=== PATIENT | male | born 1955 | race Caucasian/White ===

== ENCOUNTER 2016-12-24 11:47 | Inpatient (IN) | payer SELFPAY ==
[~2016-12-24] VITALS: Ht 177.8 cm; Wt 82.3 kg
--- NOTE | ~2016-12-24 | ER ---
PATIENT'S NAME: THERESE CÁRDENAS [facility] AGE: 61 Y [address] ROOM: [place] [address] LOCATION: [facility] ADMIT DATE: 12/24/2016 ER/Outpatient Report DISCHARGE DATE: FAMILY PHYSICIAN: PHYSICIAN, NO ATTENDING PHYSICIAN: Christen GRAVES CHIEF COMPLAINT: Heat exhaustion. HISTORY OF PRESENT ILLNESS: The patient arrives by ambulance via EMS after EMS was called to the interstate rest stop for evaluation of this individual. By report, he had been working on his vehicle significantly today and had passed out or at least was acting strangely. The patient was found to be with elevated core temperature. Fluids were started and he was brought in for evaluation. He is originally for [place]. He is a . He states all his medical records are at the [facility] in [place], [place]. Attempts to reach out to them have been futile at this time. The patient denies any alcohol, tobacco, or illicit drug use. He was tachycardic per EMS. They noted that he had in fact stopped sweating. No loss of consciousness before or during EMS. PAST MEDICAL HISTORY: Documented on the record and reviewed by me. SOCIAL HISTORY: Documented on the record and reviewed by me. MEDICATIONS: Documented on the record and reviewed by me. ALLERGIES: DOCUMENTED ON THE RECORD AND REVIEWED BY ME. REVIEW OF SYSTEMS: All systems were reviewed and negative except as noted in the HPI. PHYSICAL EXAMINATION: VITAL SIGNS: On arrival; blood pressure 129/84, pulse 127, respiratory rate 28, temperature 100.8 rectal; and SpO2 is 97% on room air. Pain is 0/10. GENERAL: An age-appropriate, dirty, disheveled male, in no obvious pain or distress, listless. NEURO: The patient is awake. He has decreased alertness. The patient was able to follow commands in all extremities, but his mental acuity is PATIENT'S NAME: THERESE CÁRDENAS [facility] AGE: 61 Y [address] ROOM: [place] [address] LOCATION: [facility] ADMIT DATE: 12/24/2016 ER/Outpatient Report DISCHARGE DATE: FAMILY PHYSICIAN: PHYSICIAN, NO ATTENDING PHYSICIAN: Christen GRAVES depressed. He is slow to answer questions and speaks hesitantly, but does answer appropriately. He knows that he is in [facility], that it is early afternoon, and that he has been out in the heat today. No focal deficits. On reevaluation sometime later, the patient was found to be hallucinating and identifying individuals who are not actually visible. He remained otherwise unremarkable, but he was just an unusual individual otherwise. HEENT: Normocephalic and atraumatic, very dirty, but otherwise unremarkable. Eyes are PERRL, dilated. The oropharynx is clear. NECK: Supple. Trachea is midline. CHEST: Heart is tachycardic. No obvious murmurs. Lungs are clear to auscultation bilaterally with no rhonchi, wheezes, or rales. ABDOMEN: Soft, nontender, and nondistended. No rebound or guarding. BACK: Back is normal to inspection and palpation. No CVA tenderness. RECTAL: Normal. External hemorrhoids noted otherwise. PROSTATE: Not examined. EXTREMITIES: Warm and well perfused. SKIN: Cool and clammy and the extremities warm and dry centrally. His back and hairline are wet presumably with sweat. LABORATORY DATA AND X-RAYS: Head CT reveals no obvious traumatic abnormalities, but there are 2 areas of punctate air visible on the right side of the sella of undetermined etiology. EKG reveals sinus tachycardia, rate of 105, with normal intervals and axis, no comparison available. Urine drug screen is positive for amphetamines. CPK is 672. CMS: Sodium 144, potassium 3.8, chloride is 112, glucose is 105, BUN is 39, creatinine 2.2, GFR is 31. LFTs are notable for bilirubin of 2.0. No elevation of the ALT or AST. CBC: White count 11.9, hemoglobin 17.5, and platelets of 242. Lactate is 1.6. CT stone protocol with no acute renal abnormalities, punctate renal stone without obstruction. Urinalysis showed 25 leukocytes, 30 protein, 50 ketones, 1 urobilinogen, and blood of 10. Micro: 10 to 20 white count, no red blood cells, no epithelials, some mucus, and hyaline casts of 10 to 20. IMPRESSION: 1. Encephalopathy secondary to amphetamine use as well as exertional heat illness. 2. Likely exertional heat exhaustion without heat stroke. 3. Hallucinations secondary to amphetamines versus possible heat stroke, time does not support heat stroke. 4. Presumed acute kidney injury with possible rhabdomyolysis, creatinine 2.2. 5. Azotemia. 6. Hallucinations. 7. Amphetamine use. PATIENT'S NAME: THERESE CÁRDENAS [facility] AGE: 61 Y [address] ROOM: [address] [address] LOCATION: [facility] ADMIT DATE: 12/24/2016 ER/Outpatient Report DISCHARGE DATE: FAMILY PHYSICIAN: PHYSICIAN, KONG ATTENDING PHYSICIAN: Christen GRAVES EMERGENCY DEPARTMENT COURSE: The patient was seen and evaluated. Initially, his presentation was most consistent with exertional heat illness. Rectal temperature was elevated. The patient was tachycardic and appeared hypovolemic. He is volume resuscitated with 3 L of normal saline with improvement in his heart rates to 95 to 105. He appeared to be relatively normal, however, we are trying to assess records from the [facility] in [place], [place], the patient's claimed home hospital. We were unable to secure those records. However, during that time we are trying to do so, the patient began to hallucinate. This prompted further evaluation including head CT and urine drug screen, which gave the above findings. In any case, he will need to be admitted for observation in the setting of acute kidney injury and encephalopathy for further evaluation and treatment. Repeat rectal core temperature was down to 97.5 degrees. The patient's tachycardia had improved markedly. He will need to be admitted for further evaluation and treatment. MD SHAR LOFTON/narayan /[id number] d: 12/25/16 0007 t: 01/03/17708, OUTPATIENT REPORT
--- NOTE | ~2016-12-24 | DS ---
PATIENT'S NAME: THERESE CÁRDENAS [facility] AGE: 61 Y [address] ROOM: [address] [address] LOCATION: [facility] ADMIT DATE: 12/24/2016 Discharge Summary DISCHARGE DATE: 12/27/2016 FAMILY PHYSICIAN: PHYSICIAN, NO ATTENDING PHYSICIAN: Christen Sullivan FINAL DIAGNOSES: 1. Acute encephalopathy, secondary to drug use. 2. Substance-induced psychosis. 3. Acute kidney injury. 4. Hyperbilirubinemia. 5. Pneumocephalus. CONSULTANTS ON THE CASE: None. PROCEDURES: None. HOSPITAL COURSE: Please see details of admission and H and P by Dr. Sullivan. Briefly, the patient was admitted with confusion and heat exhaustion. The patient was given Ativan for coverage of agitation. We did get a CT scan of maxillary sinuses without contrast due to some abnormal findings on the CT of the head. Alcohol, acetaminophen, and salicylate levels were all ordered. The patient was covered for DVT prophylaxis with Lovenox and GI prophylaxis with Protonix throughout his stay. The patient was monitored on the [facility] pathway for detox. We did get Psych consult, and they recommended allowing the patient to withdrawal, washout from his methamphetamine use. Telemetry monitoring was recommended as well as seizure precautions throughout his stay. The patient was noted to have elevated bilirubin level, and we did follow up with labs which showed resolution. Psych saw the patient on the and recommended Ativan and Haldol for psychoses. The patient continued to show clearing throughout his stay. On the , it was felt that the patient could be discharged with outpatient plans for followup in a [facility] through the [facility] in [place]. DIAGNOSTICS: Chest x-ray was normal. CT of the abdomen and pelvis showed punctate nonobstructing left renal stone. No evidence of ureteral stones or hydronephrosis. CT of the brain without contrast showed several punctate gas collections along the right side of the cavernous sinus. No fractures, acute ischemia, or hemorrhage. CT of the maxillary shows no evidence of fracture or dislocation, interval resolution of the punctate air collections noted. LABORATORY DATA: On admission, lactate was 1.6, sodium 141, potassium 3.8, chloride 112, CO2 of 20, anion gap was 15.8, glucose 150, BUN was 39, creatinine was 2.2, total bilirubin was 2.0, CPK was 672. Acetaminophen and salicylate levels were negative. Alcohol was negative. White blood cell PATIENT'S NAME: THERESE CÁRDENAS [facility] AGE: 61 Y [address] ROOM: [id number] [place], [place] [address] LOCATION: [facility] ADMIT DATE: 12/24/2016 Discharge Summary DISCHARGE DATE: 12/27/2016 FAMILY PHYSICIAN: PHYSICIAN, NO ATTENDING PHYSICIAN: Christen Sullivan count was 11.9, hemoglobin 15.7, hematocrit 46.3, platelets 242. Urinalysis had rare bacteria. Urine drug screen was positive for amphetamines. Prior to discharge, anion gap had dropped to 9.9, CO2 niall to 26, BUN was 13, creatinine was 1.0. Direct bilirubin on 12/25 was 0.3. Hemogram remained stable throughout his stay. DISCHARGE INSTRUCTIONS: The patient is discharged home. He is to follow up with his local provider in [place] in 1 week and also seek Drug and Alcohol Rehab in [place] through the [facility] system. 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 His diet is as tolerated. Activity is as tolerated. Follow up in [place] as mentioned above. DISCHARGE MEDICATIONS: 1. Pepcid 20 mg twice daily. 2. Folic acid 1 mg daily. 3. Multivitamin one tablet daily. 4. Nicotine patch 21 mg transdermally daily. 5. Thiamine 100 mg daily. 6. Claritin 10 mg daily. We do appreciate participating in this patient's care, and thank you very much for the ability to serve him while hospitalized at [facility]. Time spent coordinating details of discharge was greater than 30 minutes of which was spent coordinating with care management and consulting physicians, completion of medication reconciliation, and education of the patient on the above-mentioned diagnoses. [facility]SE [facility]EY MD LINDA/modl /[id number] d: 12/28/16 0309 t: 01/17/17 1559, DISCHARGE SUMMARY
--- NOTE | ~2016-12-24 | HP ---
PATIENT'S NAME: THERESE CÁRDENAS [facility] AGE: 61 Y [address] ROOM: [address] [address] [place] [facility] [place] DATE: 12/24/2016 History & Physical DISCHARGE DATE: FAMILY PHYSICIAN: PHYSICIAN, NO ATTENDING PHYSICIAN: Christen GRAVES DATE OF SERVICE: CHIEF COMPLAINT: Acute encephalopathy. HISTORY OF PRESENT ILLNESS: The patient is a 61-year-old gentleman with no significant past medical history, who presents here with hallucination and fall. 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 The patient was stopped by department of transportation as a routine stop at [place] today and was having physical examination and drug screen. The patient also reports that he was outside in the sun and felt dehydrated and dizzy and had a syncopal event. The patient was brought in by EMS. Upon initial evaluation, the patient was found to have a temperature of 100.8 and was noted to have visual hallucination. On further workup, the patient was noted to have some visual hallucination, and urine drug screen now is positive for amphetamine. 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 He denies self- harming, intentional overdose, chest pain, shortness of breath, fever, chills, abdominal pain, nausea, vomiting, and diarrhea. 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 He reports that he has not slept for 2 days. He reports that he smokes weed and denies any other IV drug use or nasal congestion. The patient reports that he gets most of his treatment at the [facility] in [place]. MEDICAL HISTORY: No significant medical history. SURGICAL HISTORY: The patient reports that he has history of ear surgery. FAMILY HISTORY: He does not know his dad, but reports that his mom of Alzheimer's. SOCIAL HISTORY: The patient reports he currently smokes a pack a day, and he has been smoking ever since he was a kid. 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 PATIENT'S NAME: THERESE CÁRDENAS [facility] AGE: 61 Y [address] ROOM: [address] [address] [place] [facility] [place] DATE: 12/24/2016 History & Physical DISCHARGE DATE: FAMILY PHYSICIAN: PHYSICIAN, NO ATTENDING PHYSICIAN: Christen GRAVES MEDICATIONS: No medications. REVIEW OF SYSTEMS: All systems have been reviewed and are negative except for what I mentioned in the HPI. PHYSICAL EXAMINATION: VITAL SIGNS: Temperature of 100.8, blood pressure of 129/84, heart rate of 127, respiratory rate of 14, saturating 97% on room air. GENERAL APPEARANCE: The patient is awake, noted to have slight flight of ideas and noted to have some visual hallucination as he reports of seeing objects that are not present in the room. NOSE: No nasal discharge. EYES: Sclerae nonicteric. Extraocular muscle intact. EARS: No ear discharge. MOUTH/ORAL CAVITY: Dry oral mucosa. CHEST: Clear to auscultation bilaterally. HEART: Tachycardic. No murmurs, rubs, or gallops heard. ABDOMEN: Soft, nontender, and nondistended. Bowel sounds present. EXTREMITIES: No edema. The patient is noted to have clubbing of fingers. MUSCULOSKELETAL: Range of motion is intact. No obvious joint effusion. EXPORT MANAGER: Alert and oriented x2, not oriented to time. Motor and sensory grossly intact. LABORATORY DATA: EKG, sinus tachycardia. Lab shows CPK of 672. Lactate of 1.6. White blood cell count of 11.9, hemoglobin of 15.7, platelet of 242. Glucose of 150, BUN of 39, creatinine of 2.2, sodium 144, potassium of 3.8, chloride of 112, and CO2 of 20. Urine drug screen is positive for amphetamine, negative for benzo, negative for barbiturates, negative for cocaine, negative for PCP, negative for cannabinoid. IMAGING DATA: CT brain shows no acute ischemic or hemorrhage. Several punctate gas collection along the right side of the cavernous sinus of uncertain significance. Clinical correlation regarding any previous trauma or intervention would be helpful. No discrete fracture site is identified. ASSESSMENT AND PLAN: 1. Acute encephalopathy. Etiology most likely secondary to amphetamine use, lack of sleep, and dehydration. We will admit the patient. We will treat the patient supportively. We will start the patient on IV fluid and have Ativan 2 mg IV as needed for agitation. To continue the patient PATIENT'S NAME: THERESE CÁRDENAS [facility] AGE: 61 Y [address] ROOM: [place] [address] [place] [facility] DATE: 12/24/2016 History & Physical DISCHARGE DATE: FAMILY PHYSICIAN: PHYSICIAN, NO ATTENDING PHYSICIAN: Christen GRAVES on telemonitor. Contacted [place] [employer] for evaluation for EPC. The patient deemed to be not a candidate for EPC. However, if the patient is noted to be harmful to self, personnel to contact police Department for re-evaluation. We will also have put seizure precaution. We will use Tylenol for fever and pain. 2. Acute kidney injury. Etiology most likely secondary to dehydration. We will start the patient on IV fluid. We will acquire renal function panel by tomorrow morning. 3. Tobacco use. Greater than 3 minutes but less than 10 minutes was spent on patient education on tobacco cessation. 4. Several punctate gas collection along the right side of the cavernous sinus. Etiology unknown. The patient reports that he is not ingesting drugs through his nose. There are no signs of trauma. We will acquire CT of maxillary to further investigate. Greater than 60 minutes was spent on the patient's care. 50% of the time was spent on direct patient's care with consultation with police department, discussion with Dr. Braswell in the emergency department, and direct contact with the patient. We will admit the patient for acute encephalopathy and acute kidney injury and continue with the above plan. MD JOSE NOVAK/modl /[id number] D: 026 T: 843 HISTORY & PHYSICAL
[2016-12-24 12:17] LABS: BASOPHIL % 0.2 %; EOSINOPHIL % 0.1 %; HEMATOCRIT 46.3 % (37.0-53.0); HEMOGLOBIN 15.7 g/dL (12.0-17.0); IMMATURE GRANULOCYTE # 0.1 K/uL (0.0-0.3); IMMATURE GRANULOCYTE % 0.5 %; LYMPHOCYTE # 0.9 K/uL (0.8-4.0); LYMPHOCYTE % 7.6 %; MCH 28.1 pg (27.0-34.0); MCHC 33.9 gm/dL (32.0-36.5); MCV 82.8 fl (83.0-98.0); MONOCYTE % 8.5 %; MPV 10.9 fl (9.4-12.4); NEUTROPHIL # (ANC) 9.9 K/uL (1.4-9.0); NEUTROPHIL % 83.1 %; NRBC % 0 /100WBC (0-0.00); PLATELET COUNT 242 K/uL (150-450); RBC 5.59 M/uL (4.00-6.00); RDW-CV 13.9 % (11.9-14.6); WBC 11.9 K/uL (4.0-11.0)
[2016-12-24 12:45] LABS: ALBUMIN 4.3 gm/dL (3.5-5.0); ANION GAP 15.8 (10.0-19.0); CREATININE 2.2 mg/dL (0.6-1.3); POTASSIUM 3.8 mMol/L (3.7-5.1); TOTAL PROTEIN 7.9 g/dL (6.0-8.4)
[2016-12-24 14:08] LABS: BILIRUBIN URINE NEGATIVE (NEGATIVE); BLOOD URINE 10 /UL (NEGATIVE); COLOR URINE YELLOW (YELLOW); GLUCOSE URINE NEGATIVE (NEGATIVE); KETONE URINE 50 mg/dL (NEGATIVE); LEUKOCYTES URINE 25 /UL (NEGATIVE); NITRITE URINE NEGATIVE (NEGATIVE); PROTEIN URINE 30 mg/dL (NEGATIVE); TURBIDITY URINE 1+ (CLEAR); UROBILINOGEN URINE 1 mg/dL (NORMAL)
[2016-12-24 14:16] LABS: RBC URINE NEGATIVE #/HPF (NEGATIVE)
[2016-12-24 14:17] LABS: BACTERIA URINE RARE (NEGATIVE); EPITHELIAL URINE NEGATIVE #/HPF (NEGATIVE); MUCUS URINE 1+ (NEGATIVE)
[2016-12-24 17:39] LABS: BARBITURATE NEGATIVE (NEGATIVE); COCAINE NEGATIVE (NEGATIVE); OPIATES NEGATIVE (NEGATIVE)
[2016-12-24 17:40] LABS: AMPHETAMINE POSITIVE (NEGATIVE)
[2016-12-24 19:39] LABS: ALBUMIN 3.6 gm/dL (3.5-5.0); ALK PHOS 100 IU/L (33-138); ALT 29 IU/L (12-78); ANION GAP 11.8 (10.0-19.0); AST 31 IU/L (10-40); BLOOD UREA NITROGEN 34 mg/dL (6-24); CALCIUM 8.4 mg/dL (8.5-10.5); CHLORIDE 108 mMol/L (96-110); CO2 25 mMol/L (22-32); CREATININE 1.5 mg/dL (0.6-1.3); POTASSIUM 3.8 mMol/L (3.7-5.1); SODIUM 141 mMol/L (135-145); TOTAL BILIRUBIN 1.6 mg/dL (0.0-1.5); TOTAL PROTEIN 6.8 g/dL (6.0-8.4)
[2016-12-24 19:42] LABS: ESTIMATED GFR (MDRD EQUATION) 48
--- NOTE | 2016-12-24 20:45 | NUR ---
61 Y/O MALE ADMITTED FOR ACUTE KIDNEY INJURY, ALSO PT TESTED POSITIVE FOR METH IN THE E.R. 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 PT NOT ALERT OR ORIENTED BUT CAN TELL ME HIS NAME & DATE OF . PT IS OBSERVED TO BE HALLUCINATING HE STATES THAT HE "SEES A LITTLE GARY OVER THERE", ALSO IS REACHING FOR THINGS IN THE ROOM AND THEN APPEARS TO BE RESTING FOR MOMENTS AT A TIME & IS ALSO VERY RESTLESS, PT TALKS & DOES NOT MAKE SENSE AT TIMES. PT UNABLE TO ANSWER MANY QUESTIONS AND NO QUESTIONS REGARDING HIS MEDICAL HISTORY. NURSE UNABLE TO GET ANY MEDICAL HISTORY PT IS CURRENTLY COGNITIVELY IMPAIRED. PT DID GIVE PERMISSION TO GET A PHONE NUMBER FOR A JONATHON MCCLURE IN HIS PHONE. PT STATES THAT THIS IS HIS . AFTER CALLING A JONATHON MCCLURE THAT HE STATES SHE LIVES IN [place], [place] AT . THIS JONATHON MCCLURE DENIES KNOWING THE PT , THEN AFTER INFORMING HER THAT A THERESE CÁRDENAS WANTED US TO INFORM HER HE WAS IN THE HOSPITAL SHE SAID SHE THOUGHT SHE KNEW HIM AND DOESNT THINK THAT HE HAS ANY MEDICAL HISTORY PROBLEMS. WHEN THE NURSE ASKED JONATHON IF THERE WAS ANYONE WE COULD CONTACT FOR HIM (CHILDREN, PARENTS, FAMILY, ETC) SHE STATED THAT SHE DID NOT KNOW ANYONE. SHE TOLD ME TO CALL THE [facility] IN [place] FOR HIS MEDICAL HISTORY. JONATHON DID NOT ASK ABOUT CRAIGS STATUS AND SEEMED TO BE A LITTLE CONFUSED & NOT ABLE TO ANSWER ANY OF THE NURSES QUESTIONS. JONATHON WAS VERY VAGUE & NOT WILLING TO GIVE ANY INFORMATION AT ALL. CURRENTLY PT IS VERY UNSTABLE ON HIS FEET. PT AWAKENS & DOSES OFF & ON. NOT ORIENTED. REPORT GIVEN TO PT PRIMARY CARE NURSE SUSSY GALDAMEZ
--- NOTE | 2016-12-25 02:09 | NUR ---
SIGNIFICANT EVENT: Arrived to floor at approx 1855. Pt disoriented to place, can state own name, birthdate and current year. Poor historian d/t impaired cognition. Hallucinations on admit, reaching for things in the air that are not visible to others in the room and states there is a 'little maria luisa hiding around the corner' but no one other than 2 RN's in room. Regular diet. Was very tachycardic in ER (120's to 130's) but high HR has been 101 since getting to [facility]. Positive for methamphetamine. PIV to R) AC infusing NS at 100. Zofran x1 at approx 2150. 2 mg Ativan given at 1840 in ER, no additional doses since being up to floor. Follows verbal commands, has slept so far this shift. Hypotensive - 83/63 to 113/72. Tele on, no calls. Seizure precautions d/t detox pathway/positive meth, use active ativan order to tx if one occurs. Mod BM/Void - diarrhea x1 this shift.
[2016-12-25 05:25] LABS: ALBUMIN 3.3 gm/dL (3.5-5.0); ALK PHOS 92 IU/L (33-138); ALT 27 IU/L (12-78); ANION GAP 9.9 (10.0-19.0); AST 30 IU/L (10-40); BLOOD UREA NITROGEN 31 mg/dL (6-24); CALCIUM 8.1 mg/dL (8.5-10.5); CHLORIDE 111 mMol/L (96-110); CO2 24 mMol/L (22-32); CREATININE 1.2 mg/dL (0.6-1.3); ESTIMATED GFR (MDRD EQUATION) > 60; POTASSIUM 3.9 mMol/L (3.7-5.1); SODIUM 141 mMol/L (135-145); TOTAL BILIRUBIN 2.1 mg/dL (0.0-1.5); TOTAL PROTEIN 6.3 g/dL (6.0-8.4)
[2016-12-25] MEDS ORDERED: ADVIL200 MG PO (10:03)
[2016-12-25] MEDS ORDERED: CLARITIN10 MG PO (10:04)
--- NOTE | 2016-12-25 15:54 | NUR ---
Significant Event: ON INITIAL ASSESSMENT, PT VERY PLEASANT, DISORIENTED ONLY TO TIME. VSS, AFEBRILE. PT SET BED ALARM OFF TO GO TO BR AND WAS VERY SHORT WITH NURSE ON WHY HE COULDNT WALK ALONE. PT VERY UNSTEADY ON HIS FEET, OFF BALANCED. REFUSES GAITBELT. BRUSHED TEETH AND ASKED IF HE COULD SHOWER, TOLD PT WE WOULD GET THE SHOWER SET UP. PT QUESTIONED WHERE HIS BELONGINGS WERE. VERY UPSET WHEN NOT IN ROOM, INFORMED PT I WOULD CHECK CLOSETS AND CHECK WITH ER AND SEE WHAT I COULD FIND OUT. PT YELLING AT NURSE, NURSE LEFT AND GAVE PT SOME SPACE, JUSTICE COURT DEPUTY CLERK ASSISTED WITH SHOWER. SECURITY BROUGHT PT BELONGINGS TO ROOM. PT CLAIMS THAT THERE IS $30 MISSING FROM [facility]. SECURITY AND NURSE EXPLAINED TO PT THAT ALL BELONGINGS WERE ACCOUNTED FOR ACCORDING TO THE LIST ON THE ENVELOPE FROM STAFF DURING ADMISSION. PT UPSET WITH ANSWER. PT INSIST ON FINDING SOMEONE TO GET HIM TO HIS TRUCK TO GET HIS "VITAMINS AND MONEY" INFORMED PT I WOULD SEE WHAT I COULD DO, BUT WOULD PROBABLY BE UNABLE TO GET HIM THERE UNTIL DISCHARGE. PT REQUESTING TO SPEAK WITH MD, WANTING TO GO SMOKE, VERY AGITATED AGAIN. NOTIFIED MD RADHA CAME TO SEE AND CHATTED WITH PT. RECIEVED ORDERS FOR NICOTINE PATCH, PSYCH CONSULT, DETOX PATHWAY. 1MG ATIVAN PER CIWA SCORES GAVE, PT SLEPT FOR NEXT COUPLE HOURS. PSYCH MD CAME TO SEE, PT VERY IRRITATED WITH HIM. DETOX PATHWAY DC'D. ATIVAN AND HALDOL PRN. CAN SALINE LOCK IV AFTER CURRENT BAG COMPLETED. TELEMETRY ON WITH NO CALLS. LABS ORDERED FOR AM. Follow up: SEIZURE PRECAUTIONS, FALL RISK, ALARMS FOR SAFETY, PRN ATIVAN/HALDOL, CD KUSHAL
--- NOTE | 2016-12-26 03:39 | NUR ---
Significant Event: Patient refused bed alarm, mad that it was on. Pleasant at start of shift and just wants to be left alone. Refused any ativan, but did take night time protonix. Rests throughout the night. Follow up: Continue to monitor.
[2016-12-26 05:37] LABS: ALBUMIN 3.1 gm/dL (3.5-5.0); ALK PHOS 107 IU/L (33-138); ALT 34 IU/L (12-78); ANION GAP 9.8 (10.0-19.0); AST 27 IU/L (10-40); BLOOD UREA NITROGEN 18 mg/dL (6-24); CALCIUM 8.1 mg/dL (8.5-10.5); CHLORIDE 110 mMol/L (96-110); CO2 26 mMol/L (22-32); ESTIMATED GFR (MDRD EQUATION) > 60; POTASSIUM 3.8 mMol/L (3.7-5.1); SODIUM 142 mMol/L (135-145); TOTAL BILIRUBIN 0.4 mg/dL (0.0-1.5); TOTAL PROTEIN 6.1 g/dL (6.0-8.4)
--- NOTE | 2016-12-26 17:59 | NUR ---
Significant Event: PT AO. VSS ON RA, AFEBRILE. TELE ON WITH NO CALLS. AMBULATES WITH SUPERVISION, PT APPEARS VERY UNSTEADY ON HIS FEET. SALINE LOCK TO R AC, DRIED BLOOD UNDER TEGADERM. PT HAS BEEN USING CALL LIGHT THIS SHIFT, STATES HE HATES WHEN THE ALARMS GO OFF. NURSE HAS CLUSTERED CARES TO DECREASE PT AGGITATION. DENIES PAIN, DENIES NAUSEA. Follow up: DISMISS IN AM?
--- NOTE | 2016-12-26 19:02 | NUR ---
i have reviewed and agree with charting completed by [facility] student karin burnette from [id number] jed curry
--- NOTE | 2016-12-27 04:57 | NUR ---
Significant Event: Patient rests throughout the shift, using call light although did shut off bed alarm at one point. Blames others often. Orientated x 3. Waiting for discharge, states he is going home. IV came out and was not restarted. Vitals stable. Follow up: Probably discharge today.
[2016-12-27 05:14] LABS: BASOPHIL % 0.4 %; EOSINOPHIL # 0.1 K/uL (0.0-0.5); EOSINOPHIL % 1.7 %; HEMATOCRIT 41.8 % (37.0-53.0); HEMOGLOBIN 14.3 g/dL (12.0-17.0); IMMATURE GRANULOCYTE % 0.1 %; LYMPHOCYTE # 2.1 K/uL (0.8-4.0); LYMPHOCYTE % 30.9 %; MCH 28.5 pg (27.0-34.0); MCHC 34.2 gm/dL (32.0-36.5); MCV 83.4 fl (83.0-98.0); MONOCYTE # 0.5 K/uL (0.0-1.0); MONOCYTE % 7.4 %; MPV 10.9 fl (9.4-12.4); NEUTROPHIL # (ANC) 4.1 K/uL (1.4-9.0); NEUTROPHIL % 59.5 %; NRBC % 0 /100WBC (0-0.00); PLATELET COUNT 206 K/uL (150-450); RBC 5.01 M/uL (4.00-6.00); RDW-CV 13.6 % (11.9-14.6); WBC 6.9 K/uL (4.0-11.0)
[2016-12-27 05:30] LABS: ALBUMIN 3.2 gm/dL (3.5-5.0); ALK PHOS 98 IU/L (33-138); ALT 35 IU/L (12-78); ANION GAP 9.9 (10.0-19.0); AST 19 IU/L (10-40); BLOOD UREA NITROGEN 13 mg/dL (6-24); CALCIUM 8.4 mg/dL (8.5-10.5); CHLORIDE 109 mMol/L (96-110); CO2 26 mMol/L (22-32); ESTIMATED GFR (MDRD EQUATION) > 60; POTASSIUM 3.9 mMol/L (3.7-5.1); SODIUM 141 mMol/L (135-145); TOTAL PROTEIN 6.5 g/dL (6.0-8.4)
[2016-12-27 05:31] LABS: TOTAL BILIRUBIN 0.5 mg/dL (0.0-1.5)
[2016-12-27] MEDS ORDERED: PEPCID20 MG PO (10:16)
[2016-12-27] MEDS ORDERED: FOLIC ACID1 MG PO (10:17)
[2016-12-27] MEDS ORDERED: MULTIPLE VITAM1 EACH PO (10:17)
[2016-12-27] MEDS ORDERED: NICOTINE PATCH1 EAC1 TRANS (10:19)
[2016-12-27] MEDS ORDERED: VITAMIN B-1100 MG PO (10:20)
--- NOTE | 2016-12-27 10:50 | NUR ---
patient refused to have dismissal vital signs performed.
--- NOTE | 2016-12-27 13:47 | NUR ---
Consult received to help patient to get set up with in [facility]. Met with FEI Guerin at 0940 and she states that patient lives in [place] and has [place] benefits. The [place] [facility]hab center is [place] from his home in [place]. He has already contacted the [facility] and they have secured a bed for him to be admitted on . I met with patient and introduced myself and the role of the child care center administrator. Patient confirms the above information with me. He is either going to take the [employer] bus from [place] to [place] or he is going to try and find a flight. The bus leaves at 1205 so the plan will be to have his discharged by 1115 to catch the bus. In the mean time I also gave him the phone number for [facility] [employer] and he was on the phone with them to see if he can book a flight that will get him to [place]. Patient ended up booking a flight. I provided him with the phone number for the [place] [employer]. He contacted the cab on his own and was discharged without any additional needs.
--- NOTE | 2016-12-27 15:34 | NUR ---
patient dismissed. belongings, rx slip, new meds, dismissal instructions all given to patient. patient verbalizes understanding of instrucitons. patient will follow up with drug rehab therapy in [place] and see his family medical doctor next week. Patient has made arrangements to fly home this afternoon to [place], taken to front door to meet Taxi to go to the [employer] to pickers material handlers his belongings and go to airport.
== END 2016-12-27 10:50 | disposition disaster alternative care site (69) | DRG 917 ==
LOC: GMED 11:47 → GMSU 17:45
PROVIDERS: Emergency Medicine; Family Medicine; ADMIT Internal Medicine
PROC: HZ2ZZZZ Detoxification Services for Substance Abuse Treatment (ICD-10-PCS; principal; 2016-12-24)
DX: T43.621A Poisoning by amphetamines, accidental (unintentional), initial encounter (principal); G92 Toxic encephalopathy; N17.9 Acute kidney failure, unspecified; M62.82 Rhabdomyolysis; F19.951 Other psychoactive substance use, unspecified with psychoactive substance-induced psychotic disorder with hallucinations; G93.89 Other specified disorders of brain; E86.0 Dehydration; F17.200 Nicotine dependence, unspecified, uncomplicated; F15.10 Other stimulant abuse, uncomplicated; N20.0 Calculus of kidney; K57.30 Diverticulosis of large intestine without perforation or abscess without bleeding; E80.6 Other disorders of bilirubin metabolism
CPT/HCPCS: G0480; J1650; J2060; J2405; J7030